=== PATIENT | female | born 1995 ===

== ENCOUNTER 2018-04-29 23:49 | Emergency (ER) | payer OTHER ==
[2018-04-29 23:57] VITALS: RESP 18; O2SAT 100
[2018-04-30] MEDS ORDERED: Lactated Ringer's 1,000 ML IV STA (00:15)
--- NOTE | 2018-04-30 01:31 | ED PDOC ---
HPI: Female Pain Time Seen by Provider: 04/30/18 00:03 Chief Complaint (Nursing): Dizziness/Lightheaded Chief Complaint (Provider): Vaginal bleeding and abdominal pain History Per: Patient History/Exam Limitations: no limitations Onset/Duration Of Symptoms: Hrs (x2 ) Current Symptoms Are (Timing): Still Present Additional Complaint(s): Corazon Bajwa is a 22 year old female, with no significant past medical history , who presents to the emergency department for evaluation of vaginal bleeding and abdominal pain. Patient is A0 and GA of 16 weeks. Patients been having lightheadedness intermittently throughout her and reports x2 hrs ago she had an episode causing her to fall while going up the stairs. She reports falling on her back and states subsequently noted a small amount of brown vaginal discharge. She denies any other medical complaints. PMD: : 3 Para: 2 Past Medical History Reviewed: Historical Data, Nursing Documentation, Vital Signs Vital Signs: Last Vital Signs Temp 98.4 F 04/29/18 23:52 Pulse 86 04/29/18 23:52 Resp 18 04/29/18 23:52 BP 117/75 04/29/18 23:52 Pulse Ox 100 04/29/18 23:52 - Medical History PMH: No Chronic Diseases - Surgical History Surgical History: No Surg Hx - Family History Family History: States: No Known Family Hx - Allergies Allergies/Adverse Reactions: Allergies Allergy/AdvReac Type Severity Reaction Status Date / Time No Known Allergies Allergy Verified 04/29/18 23:52 Review of Systems ROS Statement: Except As Marked, All Systems Reviewed And Found Negative Cardiovascular: Positive for: Light Headedness Gastrointestinal: Positive for: Abdominal Pain Genitourinary Female: Positive for: Vaginal Bleeding Physical Exam - Reviewed Nursing Documentation Reviewed: Yes Vital Signs Reviewed: Yes - Physical Exam Appears: Positive for: Non-toxic Head Exam: Positive for: ATRAUMATIC, NORMAL INSPECTION, NORMOCEPHALIC Skin: Positive for: Normal Color, Warm, Dry Eye Exam: Positive for: Normal appearance, EOMI, PERRL Neck: Positive for: Painless ROM Cardiovascular/Chest: Positive for: Regular Rate, Rhythm. Negative for: Murmur Respiratory: Positive for: Normal Breath Sounds. Negative for: Respiratory Distress Gastrointestinal/Abdominal: Positive for: Normal Exam, Soft. Negative for: Tenderness Back: Positive for: Normal Inspection. Negative for: L CVA Tenderness, R CVA Tenderness, Vertebral Tenderness Extremity: Positive for: Normal ROM (Upper and lower extremities). Negative for : Deformity, Swelling Neurologic/Psych: Positive for: Alert, Oriented. Negative for: Motor/Sensory Deficits - Laboratory Results Result Diagrams: 04/30/18 01:20 04/30/18 01:20 - ECG O2 Sat by Pulse Oximetry: 100 (RA) Pulse Ox Interpretation: Normal Medical Decision Making Medical Decision Making: Time: 00:03 Initial Impression: 22 y/o female with abdominal pain s/p fall in with vaginal bleeding Initial Plan: --ABO/RH Type --Type and screen --BMP --Beta-HCG, Quantitative --CMP --CBC w/ differential --Lactated Ringers 1,000 ml IV 1,000 mls/hr --Tylenol 325 mg tab 650 mg PO --Urinalysis --OB , Limited [US] --Reevaluation 01:44 Ultrasound FINDINGS: Fetus: The average ultrasound age was measured at 18 weeks and 2 days. There is motion. Position: There is a villa fetus in the variable presentation. Heart rate: The heart rate was measured at 157 beats per minute. Placenta: The placenta is posterior in location. Amniotic fluid: There's an adequate amount of amniotic fluid. The cervix is closed and measures 3.4 cm. IMPRESSION: No acute findings. 03:05 -Labs reviewed, showed no clinical significant abnormalities. Patient reports improvement of symptoms. Diagnosis threatened miscarriage. Advised patient to follow up with her OBGYN Dr. Chavez at [facility]. Advised pelvic rest and return if symptoms persist or worsen. ----- Scribe Attestation: Documented by Rhett Harding, acting as a scribe for Kwesi Morales MD. Provider Scribe Attestation: All medical record entries made by the Scribe were at my direction and personally dictated by me. I have reviewed the chart and agree that the record accurately reflects my personal performance of the history, physical exam, medical decision making, and the department course for this patient. I have also personally directed, reviewed, and agree with the discharge instructions and disposition. Disposition - Clinical Impression Clinical Impression: Threatened miscarriage - Disposition Disposition: Routine/Home Disposition Time: 03:05 Condition: STABLE Instructions: Threatened Miscarriage Forms: [employer] (Slovenian)
[2018-04-30 01:34] LABS: BASO % 0.2 % (0.0-2.0); EOS # 0.2 K/uL (0.0-0.7); EOS % 2.1 % (0.0-4.0); HEMOGLOBIN 10.5 g/dL (12.0-16.0); LYMPH # 2.1 K/uL (1.0-4.3); MEAN CELL VOLUME 81.8 fl (81.0-99.0); MEAN CORPUSCULAR HEMOGLOBIN 26.9 pg (27.0-31.0); MEAN CORPUSCULAR HGB CONC 32.9 g/dL (33.0-37.0); MEAN PLATELET VOLUME 8.6 fl (7.2-11.7); MONO # 0.7 K/uL (0.0-0.8); MONO % 6.5 % (0.0-10.0); NEUT # 7.5 K/uL (1.8-7.0); NEUT % 71.2 % (50.0-75.0); RBC 3.91 Mil/uL (3.80-5.20); WHITE BLOOD COUNT 10.6 K/uL (4.8-10.8)
[2018-04-30 01:42] LABS: ALB/GLOB RATIO 1.1 (1.0-2.1); ALBUMIN 3.9 g/dL (3.5-5.0); ALT/SGPT 37 U/L (9-52); AST/SGOT 42 U/L (14-36); BLOOD UREA NITROGEN 6 mg/dl (7-17); GFR AFRICAN-AMERICAN > 60; GFR NON-AFRICAN AMERICAN > 60
[2018-04-30 02:06] LABS: SQUAMOUS EPITHIAL 12 /hpf (0-5); URINE BACTERIA RARE (<OCC); URINE BILIRUBIN NEGATIVE (NEGATIVE); URINE CLARITY CLOUDY (Clear); URINE COLOR AMBER (YELLOW); URINE GLUCOSE (UA) NEG (Normal); URINE LEUKOCYTE ESTERASE NEG Leu/uL (Negative); URINE PROTEIN 30 mg/dL (NEGATIVE)
[2018-04-30 02:07] LABS: URINE BLOOD SMALL (NEGATIVE)
[2018-04-30 05:01] VITALS: BP 125/78; PULSE 82; TEMP 98.2
--- NOTE | 2018-05-01 10:15 | US ---
Date of service: 04/30/2018 PROCEDURE: OB Pelvic Ultrasound HISTORY: abd pain preg COMPARISON: None available. FINDINGS: UTERUS: Single live intrauterine fetus in variable presentation. BPD: 4.03 cm corresponding to 18 weeks and 2 days of gestational age. HC: 15.22 cm corresponding to 18 weeks and 2 days of gestational age. AC: 12.81 cm corresponding to 18 weeks and 3 days of gestational age. FL: 2.66 cm corresponding to 18 weeks and 1 day of gestational age. age (Ultrasound estimated): 18 weeks and 2 days Date of delivery (Ultrasound estimated) : 09/29/2018 Heart rate: 158 bpm. Sunshine-gestational hemorrhage: None. Placenta is posterior. Cervix is closed. Amniotic fluid is adequate. CERVIX: Long and closed. No cervical abnormality seen. RIGHT OVARY: Not visualized. LEFT OVARY: Not visualized. FREE FLUID: None. OTHER FINDINGS: None. IMPRESSION: Single live intrauterine gestation with mean gestational age of 18 weeks and 2 days. The estimated date of delivery by ultrasound is 09/29/2018. The ultrasound dates correspond with the clinical dates. Please note this is a limited OB ultrasound performed on an emergent basis. Dedicated anatomic survey is recommended. A preliminary report was provided by [employer] [facility].
== END 2018-04-30 05:01 | disposition home or self-care (01) ==
LOC: H.ER 23:49
DX: O03.9 Complete or unspecified spontaneous abortion without complication (principal); Z3A.18 18 weeks gestation of pregnancy
CPT/HCPCS: 76815; 80053; 81003; 84702; 85025; 86850; 86900; 99285; J7120

== ENCOUNTER 2018-05-01 13:23 | Emergency (ER) | payer OTHER ==
[2018-05-01 13:30] VITALS: O2SAT 100; BMI 25.4
[2018-05-01] MEDS ORDERED: Apap-Butalbital-Caffeine 325-50-40mg Tab PO ONE (14:20)
--- NOTE | 2018-05-01 14:40 | ED PDOC ---
HPI: Headache Chief Complaint (Nursing): Dizziness/Lightheaded Chief Complaint (Provider): Dizziness/Lightheaded History Per: Patient History/Exam Limitations: no limitations Onset/Duration Of Symptoms: Days (x 1 month) Current Symptoms Are (Timing): Still Present Severity: Severe Quality: "Pain" Additional Complaint(s): 22 year old female with no significant medical history presents to the ED with complaints of a severe frontal headache for the last month. Patient reports pain was intermittent initially. For the last 3 weeks, the pain has become persistently painful on a daily basis. On most days, she describes pain as greater than 10/10. She had one episode of vomiting and nausea associated with the headache 2 days ago. Patient also states that she has felt dizzy or lightheaded and reports a syncopal event (?) that occurred two days ago. She also had complaints of right lower pelvic cramps and intermittent vaginal spotting that began 2-3 days ago. Patient was evaluated at [facility] ([place]), had negative results for her testing, unremarkable US documentation and was sent home for further evaluation. She is , ~18-19 weeks currently and has already had care. --Pt denies fever, chills, sweats --Denied shortness of breath/chest pain/palpitations --No upper abdominal pain, numbness/tingling --pt denied neck pain --Denied midline tenderness, visual deficiencies, slurred speech, rashes. --pt denied fall/trauma/sick contact, no travel --pt is here for further evaluation PMD: Dr. Martin Chavez family hx: no headache hx pt is right hand dominate Past Medical History Reviewed: Historical Data, Nursing Documentation, Vital Signs Vital Signs: Last Vital Signs Temp 98.1 F 05/01/18 13:34 Pulse 77 05/01/18 13:34 Resp 18 05/01/18 13:34 BP 106/68 05/01/18 13:34 Pulse Ox 100 05/01/18 13:34 - Medical History PMH: No Chronic Diseases - Surgical History Surgical History: No Surg Hx - Family History Family History: States: Unknown Family Hx - Social History Current smoker - smoking cessation education provided: No Ex-Smoker (has not smoked in the last 12 months): No Alcohol: None Drugs: Denies - Home Medications Home Medications: Ambulatory Orders Medication Instructions Recorded Acetaminophen [Tylenol 325mg tab] 2 tab PO QID PRN #30 tab 05/01/18 Metoclopramide HCl [Reglan] 10 mg PO TID PRN #30 tablet 05/01/18 - Allergies Allergies/Adverse Reactions: Allergies Allergy/AdvReac Type Severity Reaction Status Date / Time No Known Allergies Allergy Verified 05/01/18 13:33 Review of Systems ROS Statement: Except As Marked, All Systems Reviewed And Found Negative Constitutional: Negative for: Fever, Chills, Sweats Eyes: Negative for: Vision Change Cardiovascular: Negative for: Chest Pain, Palpitations Respiratory: Negative for: Shortness of Breath Gastrointestinal: Positive for: Nausea, Vomiting (1 episode 2 days ago) Genitourinary Female: Positive for: Vaginal Bleeding (intermittent vaginal spotting) Neurological: Positive for: Headache (severe frontal headache). Negative for: Weakness, Numbness Physical Exam - Reviewed Nursing Documentation Reviewed: Yes Vital Signs Reviewed: Yes (WNL) - Physical Exam Appears: Positive for: Well (alert/awake, GCS = 15, oriented x 3, uncomfortable , + moderate distress due to pain/headache, resting in a dark room), Non-toxic, Uncomfortable, In Acute Distress Head Exam: Positive for: ATRAUMATIC, NORMAL INSPECTION, NORMOCEPHALIC Skin: Positive for: Normal Color (cap refill < 1sec, no ulcerations, no petechiae), Warm, Dry. Negative for: Diaphoresis, Rash Eye Exam: Positive for: Normal appearance, EOMI, PERRL, Other (fundoscopic exam : WNL, no acute papilledema noted b/l, no gross photophobia, visual field intact b/l). Negative for: Nystagmus ENT: Positive for: Normal ENT Inspection Neck: Positive for: Normal, Painless ROM, Supple, Trachea Midline Cardiovascular/Chest: Positive for: Regular Rate, Rhythm, Other (+S1, +S2, no m/ r/r). Negative for: Murmur Respiratory: Positive for: Normal Breath Sounds, Other (CTA b/l, no w/r/r, no accessory muscle use noted). Negative for: Respiratory Distress Gastrointestinal/Abdominal: Positive for: Normal Exam, Bowel Sounds, Soft, Other (abd distention appropriate for gestation; no navas's sign, no mcburney' s point tenderness, no masses/rebound/gurading/rigidity). Negative for: Tenderness Back: Positive for: Normal Inspection. Negative for: L CVA Tenderness, R CVA Tenderness, Vertebral Tenderness Extremity: Positive for: Normal ROM, Other (+ ambulatory, neurovasc intact b/l) . Negative for: Deformity Neurologic/Psych: Positive for: Alert, event marketing specialist II-XII, Oriented (x 3). Negative for : Motor/Sensory Deficits - Laboratory Results Result Diagrams: 05/01/18 14:54 05/01/18 14:54 - ECG ECG: Positive for: Interpreted By Me, Viewed By Me ECG Rhythm: Positive for: Sinus Rhythm (normal). Negative for: ST/T Changes Interpretation Of Abn EKG: NSR at 65 bpm, normal axis, no ectopy, no st-t changes, NORMAL EKG; no old ekg to compare with Interpretation Of ECG: normal EKG; normal axis, no ectopy; There are no old EKGs to compare to. Rate: 65 O2 Sat by Pulse Oximetry: 100 (RA) Pulse Ox Interpretation: Normal - Progress ED Course And Treament: 14:15 --Spoke to Dr. Polanco, OB global position system technician. I consulted her to determine if Fioricet and Magnesium sulfate are suitable for women. --Fioricet is allowed for people. Dr. Polanco is going to look into whether magnesium sulfate is allowable. --Otherwise, she agrees with ED management and treatment. 14:27 --Dr. Polanco called to notify that both Fioricet and magnesium sulfate are allowable in patient's state of . 15:13 --Patient was offered to obtain CT head. She will give it thought because she was made aware of the risks of radiation exposure to an unborn child. 15:17 --Ct Head has been ordered. OB US FINDINGS: Breech presentation. Fundal/ posterior Placenta. No evidence of abruption or previa Gestational age derived from LMP 18 weeks 5 days. ROYCE 09/27/2018. Gestational age derived from the following biometric parameters 18 weeks 2 days. ROYCE [id number] Biparietal diameter 4.04 cm Head circumference 14.64 cm Abdominal circumference 12.48 cm Femur length 2.88 cm Estimated weight 237.3 g Calculated cardiac rate 157 beats per min. Closed cervix measuring 6.64 cm IMPRESSION: 18 weeks 2 days live intrauterine gestation. Gestational age remains concordant. Time: 19:32 --Patient reports improvement of headache which is now described at 04/25. --Was given option to stay or be discharged, Patient states she would rather go home. --refused CT Head due to concern about radiation exposure on her unborn child. --Recommend for outpatient follow up with PCP and neurologist. --Patient expressed understanding and will be discharged home. --pt tolerated po well --pt is encouraged continued fluid hydration Re-evaluation Time: 19:53 Condition: Re-examined, Improved Medical Decision Making Medical Decision Making: Time: 14:20 Impression: headache Differential diagnoses: I have consider all the differential diagnosis regarding patient's chief medical complaints/clinical findings, including but are not limited to: non-specific, atraumatic headache, unlikely meningitis, unlikely brain pathology. R/o preeclampsia, eclampsia, neuro infection Plan: --Blood type --EKG --CMP --magnesium --TSH --urine preg --Urinalysis --CBC --Fioricet 1 tab PO --NS IV 1,000 mls/hr --Reglan 10 mg IVP --OB Preg US ---- Scribe Attestation: Documented by Juliana Soto, acting as a scribe for Abraham Pride MD Provider Scribe Attestation: All medical record entries made by the Scribe were at my direction and personally dictated by me. I have reviewed the chart and agree that the record accurately reflects my personal performance of the history, physical exam, medical decision making, and the department course for this patient. I have also personally directed, reviewed, and agree with the discharge instructions and disposition. Disposition - Clinical Impression Clinical Impression: Headache, Dizzy spells, - Patient ED Disposition Is Patient to be Admitted: No Counseled Patient/Family Regarding: Studies Performed, Diagnosis, Need For Followup, Rx Given - Disposition Referrals: PCP,NO [Non-Staff] - Zachary Meyers MD [Medical Doctor] - [facility] [Outside] [facility] [Outside] [facility] [Outside] Disposition: Routine/Home Disposition Time: 19:39 Condition: STABLE Additional Instructions: Make sure to see your doctor in 1-2 days DRINK PLENTY OF FLUIDS take your medications as prescribed RETURN TO ED IF worse pain, cant breath, persistent vomiting, high fever >101- 102 for hours, altered behavior, slurr speech, facial changes, focal weakness ( arm/leg or both), unable to urinate, heavy/persistent bleeding, passing out, chest pain, or other medical emergencies Prescriptions: Acetaminophen [Tylenol 325mg tab] 2 tab PO QID PRN #30 tab PRN Reason: Headache Metoclopramide HCl [Reglan] 10 mg PO TID PRN #30 tablet PRN Reason: Nausea/Vomiting Instructions: Medications and , Headache, Adult, Dizziness, Nonvertigo , (DC), - The Fourth Month Forms: [employer] (Yoruba), [facility] ED School/Work Excuse Print Language: SAMI
[2018-05-01] MEDS ORDERED: Apap-Butalbital-Caffeine 325-50-40mg Tab ONE (14:55)
[2018-05-01] MEDS: Sodium Chloride 0.9% 1,000 ML IV SCH ×4 (15:01→17:41)
[2018-05-01 15:06] LABS: BASO % 0.3 % (0.0-2.0); EOS # 0.1 K/uL (0.0-0.7); EOS % 0.9 % (0.0-4.0); HEMOGLOBIN 10.5 g/dL (12.0-16.0); LYMPH # 1.4 K/uL (1.0-4.3); LYMPH % 14.4 % (20.0-40.0); MEAN CELL VOLUME 81.4 fl (81.0-99.0); MEAN CORPUSCULAR HEMOGLOBIN 27.4 pg (27.0-31.0); MEAN CORPUSCULAR HGB CONC 33.6 g/dL (33.0-37.0); MEAN PLATELET VOLUME 8.4 fl (7.2-11.7); MONO # 0.5 K/uL (0.0-0.8); MONO % 4.8 % (0.0-10.0); NEUT # 7.8 K/uL (1.8-7.0); NEUT % 79.6 % (50.0-75.0); RBC 3.86 Mil/uL (3.80-5.20); RED CELL DISTRIBUTION WIDTH 14.8 % (11.5-14.5); WHITE BLOOD COUNT 9.8 K/uL (4.8-10.8)
[2018-05-01] MEDS ORDERED: Magnesium Sulfate 1 gm in D5W 1 GM/100 ML BAG IVPB ONE (15:17)
[2018-05-01 15:30] LABS: ALB/GLOB RATIO 1.1 (1.0-2.1); ALBUMIN 3.7 g/dL (3.5-5.0); ALT/SGPT 28 U/L (9-52); AST/SGOT 29 U/L (14-36); BLOOD UREA NITROGEN 6 mg/dl (7-17); CALCIUM 8.6 mg/dL (8.4-10.2); GFR AFRICAN-AMERICAN > 60; GFR NON-AFRICAN AMERICAN > 60
[2018-05-01 16:41] LABS: SQUAMOUS EPITHIAL 10 /hpf (0-5); URINE BACTERIA RARE (<OCC); URINE BILIRUBIN NEGATIVE (NEGATIVE); URINE BLOOD NEGATIVE (NEGATIVE); URINE CLARITY CLOUDY (Clear); URINE COLOR YELLOW (YELLOW); URINE GLUCOSE (UA) NEG (Normal); URINE LEUKOCYTE ESTERASE NEG Leu/uL (Negative); URINE PROTEIN NEGATIVE (NEGATIVE); URINE UROBILINOGEN 0.2-1.0 mg/dL (0.2-1.0)
[2018-05-01 17:40] VITALS: BP 112/74; RESP 16; TEMP 98.4
--- NOTE | 2018-05-01 18:18 | US ---
Date of service: 05/01/2018 PROCEDURE: Obstetrical ultrasound, limited HISTORY: right pelvic pain/intermittent, preg COMPARISON: April 30, 2018. . TECHNIQUE: Standard protocol for this study/examination. FINDINGS: Breech presentation. Fundal/ posterior Placenta. No evidence of abruption or previa Gestational age derived from LMP 18 weeks 5 days. ROYCE 09/27/2018. Gestational age derived from the following biometric parameters 18 weeks 2 days. ROYCE [id number] Biparietal diameter 4.04 cm Head circumference 14.64 cm Abdominal circumference 12.48 cm Femur length 2.88 cm Estimated weight 237.3 g Calculated cardiac rate 157 beats per min. Closed cervix measuring 6.64 cm IMPRESSION: 18 weeks 2 days live intrauterine gestation. Gestational age remains concordant.
[2018-05-01 18:46] VITALS: PULSE 65
--- NOTE | 2018-05-02 15:36 | CARD ---
APPROVED REPORT Date of service: 05/01/2018 EKG Measurement Heart [id number] <Conclusion> Normal sinus rhythm with sinus arrhythmia Normal ECG
== END 2018-05-01 19:50 | disposition home or self-care (01) ==
LOC: H.ER 13:23
DX: R51 Headache (principal); O26.812 Pregnancy related exhaustion and fatigue, second trimester; Z3A.19 19 weeks gestation of pregnancy; O21.9 Vomiting of pregnancy, unspecified
CPT/HCPCS: 76815; 80053; 81003; 81025; 83735; 84443; 85025; 86850; 86900; 93005; 96361; 96365; 96375; 99285; J2765; J3475; J7030